=== PATIENT | female | born 1930 | race Caucasian/White ===

== ENCOUNTER 2016-09-05 12:55 | Emergency (ER) | payer OTHER ==
[~2016-09-05] VITALS: Ht 149.9 cm; Wt 51.2 kg
[2016-09-05 12:58] VITALS: TEMP 37.2; Ht 149.9 cm; Wt 51.2 kg
[2016-09-05] MEDS ORDERED: ACETAMINOPHEN 500 MG TAB PO STA (13:13)
[2016-09-05] MEDS ORDERED: SODIUM CHLORIDE 0.9% 1000ML 1,000 ML IV STA (13:13)
[2016-09-05] MEDS ORDERED: TRAMADOL HCL 50 MG TAB PO STA (13:13)
--- NOTE | 2016-09-05 13:16 | EMERGENCY ROOM VISIT NOTE ---
History Report prepared by Vasquez: Gopi Ulloa Under the Supervision of: Dr. Gianluca Turner M.D. First contact with patient: 13:06 Chief Complaint: URINARY SYMPTOMS Stated Complaint: TROUBLE GOING TO THE BATHROOM-URINE Nursing Triage Summary: pt to the ED with c/o "couldn't make my urine " and dark stuff in her underwear c/o dysuria and lower back pain and states she did take her back pain pills History of Present Illness The patient is an 85 year old female who presents to the Emergency Room with complaints of persistent urinary symptoms that started a couple days ago. She says that she has had urinary burning and difficulty urinating. The patient's family notes that the patient has also had brown vaginal discharge. The patient says that she has been having back pain, and has been taking Tramadol with minimal relief. She currently has the pain. The patient states that her abdomen hurts when it is touched. She denies any fevers, vomiting, rashes, or eating problems. The patient is noted to have a history of kidney problems. Source of History: patient, family Onset: A couple days ago Position: other (global - urinary symptoms) Quality: other (difficulty urinating, dysuria) Timing: other (persistent) Associated Symptoms: + back pain, No fevers, No rash, No vomiting Note: Associated symptoms: Abdominal pain when touched. Brown vaginal discharge. Denies eating problems. Review of Systems See HPI for pertinent positives & negatives. A total of 10 systems reviewed and were otherwise negative. Past Medical & Surgical Medical Problems: (1) Diabetes (2) Hip fracture (3) HTN (hypertension) (4) Neck fracture Surgical Problems: (1) History of hysterectomy Family History Diabetes mellitus FHx: cancer Hypertension Social History Smoking Status: Never Smoker Marital Status: Housing Status: lives with family Occupation Status: retired Current/Historical Medications Scheduled Atorvastatin (Lipitor), 20 MG PO DAILY Calcium Carbonate (Caltrate 600), 600 MG PO DAILY Cephalexin Monohydrate (Keflex), 500 MG PO TID Cyanocobalamin (Vitamin B-12), 100 MCG PO DAILY Glimepiride (Glimepiride), 2 MG PO QAM Levothyroxine Sodium (Levothyroxine Sodium), 75 MCG PO QAM Metoprolol Tartrate (Lopressor) (Lopressor), 12.5 MG PO BID Ocuvite Preservision (Ocuvite Preservision), 1 TAB PO DAILY Scheduled PRN Acetaminophen (Tylenol), 500 MG PO Q6H PRN for Pain Meclizine HCl (Meclizine 25), 25 MG PO TID PRN for Dizziness or Vertigo Tramadol (Ultram), 50 MG PO Q6H PRN for Pain Allergies Coded Allergies: Penicillins (Verified Allergy, Severe, 09/05/16) ALLERGY IS ANAPHYLAXIS Hydrocodone (Verified Allergy, Unknown, 09/05/16) Propoxyphene (Verified Allergy, Unknown, 09/05/16) Sulfa Drugs (Verified Allergy, Unknown, 09/05/16) Uncoded Allergies: ASPIRIN (Generic Allergy) (Allergy, Mild, Y, 07/03/02) NAUSEA EGGS (Allergy, Unknown, 07/03/02) N (Allergy, Unknown, 07/03/02) NO (Allergy, Unknown, 07/03/02) NONSTEROIDAL (Allergy, Unknown, 09/05/16) PNC,SULFA,DARVOCET,ASA,HICODENE (Allergy, Unknown, 07/03/02) Physical Exam Vital Signs Date Time Temp Pulse Resp B/P Pulse Ox O2 Delivery O2 Flow Rate FiO2 09/05/16 14:20 70 16 116/57 96 Room Air 09/05/16 12:58 37.2 76 18 137/76 97 Physical Exam GENERAL: Patient is elderly appearing, hard of hearing, in minimal distress. HEENT: No acute trauma, normocephalic atraumatic, mucous membranes moist, no nasal congestion, no scleral icterus. NECK: No stridor, no adenopathy, no meningismus, trachea is midline. LUNGS: No dyspnea. Clear to auscultation and equal bilaterally. No wheeze, no rhonchi. HEART: Regular rate and rhythm. No murmurs, rubs, gallops appreciated. ABDOMEN: Fullness of lower abdomen, mild tenderness over suprapubic area. BACK: No midline tenderness, no CVA tenderness EXTREMITIES: Normal motion all extremities, no cyanosis, no edema. NEUROLOGIC: Alert and oriented, no acute motor or sensory deficits, no focal weakness, cranial nerves grossly intact. SKIN: No rash, no jaundice, no diaphoresis. Medical Decision & Procedures ER Provider Diagnostic Interpretation: CT results are stated below per my interpretation and the radiologist's interpretation. ABDOMEN AND PELVIS CT WITH IV CONTRAST CT DOSE: 358.31 mGycm HISTORY: Pain. Mass. UTI, bilateral flank pain, pubic discomfort, ? Pelvic mass? TECHNIQUE: Multiaxial CT images of the abdomen and pelvis were performed following the use of intravenous contrast. COMPARISON STUDY: None. FINDINGS: Nonspecific interstitial prominence both lung bases. Liver demonstrates several small cortical cysts. Possible early cirrhotic changes considered. Gallbladder is contracted. Right kidney is negative for hydronephrosis. There is a small millimeter calculus within the right renal pelvis. It appears to be nonobstructing. There is a 5.6 x 3.3 cm upper pole right renal cyst. Left kidney enhances appropriately. There is atherosclerotic change and ectasia abdominal aorta. No well-defined aneurysm is appreciated. Bowel pattern overall is nonobstructive. There are findings of chronic sigmoid diverticulosis. Bladder is midline. Patient is status post right hip pinning with metallic artifact obstructing detail of the low pelvis. There is mild increase in fecal load throughout the colon. There are considerable degenerative changes of the thoracolumbar spine. There appears to be fusion of the T12-L1 and L2 vertebral body levels. There is no acute compression deformity. No acute abnormality of the bony pelvis is present. IMPRESSION: 1. General increase in fecal load throughout the colon consistent with a component of fecal stasis. 2. Chronic sigmoid diverticulosis 3. No evidence for pelvic mass or obstructive bowel characteristics. 4. Upper pole right renal cyst with a 6 mm nonobstructing right renal pelvic calcification. 5. Contracted gallbladder. 6. Prominent basilar parenchymal markings Electronically signed by: Alok Marin M.D. 09/05/2016 2:11 PM Dictated Date/Time: 09/05/2016 2:05 PM Laboratory Results 09/05/16 13:25 Red Blood Count 4.00, Mean Corpuscular Volume 91.0, Mean Corpuscular Hemoglobin 29.8, Mean Corpuscular Hemoglobin Concent 32.7, Mean Platelet Volume 9.8, Neutrophils (%) (Auto) 73.8, Lymphocytes (%) (Auto) 15.5, Monocytes (%) (Auto) 9.5, Eosinophils (%) (Auto) 0.8, Basophils (%) (Auto) 0.2, Neutrophils # (Auto) 7.29, Lymphocytes # (Auto) 1.53, Monocytes # (Auto) 0.94, Eosinophils # (Auto) 0.08, Basophils # (Auto) 0.02 09/05/16 13:25 Test 09/05/16 13:05 09/05/16 13:25 09/05/16 13:27 Urine Color YELLOW Urine Appearance TURBID (CLEAR) Urine pH 5.5 (4.5-7.5) Urine Specific [place] 1.010 (1.000-1.030) Urine Protein 1+ (NEG) Urine Glucose (UA) NEG (NEG) Urine Ketones NEG (NEG) Urine Occult Blood 3+ (NEG) Urine Nitrite NEG (NEG) Urine Bilirubin NEG (NEG) Urine Urobilinogen NEG (NEG) Urine Leukocyte Esterase LARGE (NEG) Urine RBC 10-30 /hpf (0-4) Urine WBC >30 /hpf (0-5) Urine Epithelial Cells 0-5 /lpf (0-5) Urine Bacteria 4+ (NEG) White Blood Count 9.88 K/uL (4.8-10.8) Red Blood Count 4.00 M/uL (4.2-5.4) Hemoglobin 11.9 g/dL (12.0-16.0) Hematocrit 36.4 % (37-47) Mean Corpuscular Volume 91.0 fL (80-100) Mean Corpuscular Hemoglobin 29.8 pg (25-34) Mean Corpuscular Hemoglobin Concent 32.7 g/dl (32-36) Platelet Count 195 K/uL (130-400) Mean Platelet Volume 9.8 fL (7.4-10.4) Neutrophils (%) (Auto) 73.8 % Lymphocytes (%) (Auto) 15.5 % Monocytes (%) (Auto) 9.5 % Eosinophils (%) (Auto) 0.8 % Basophils (%) (Auto) 0.2 % Neutrophils # (Auto) 7.29 K/uL (1.4-6.5) Lymphocytes # (Auto) 1.53 K/uL (1.2-3.4) Monocytes # (Auto) 0.94 K/uL (0.11-0.59) Eosinophils # (Auto) 0.08 K/uL (0-0.5) Basophils # (Auto) 0.02 K/uL (0-0.2) RDW Standard Deviation 51.8 fL (36.4-46.3) RDW Coefficient of Variation 15.3 % (11.5-14.5) Immature Granulocyte % (Auto) 0.2 % Immature Granulocyte # (Auto) 0.02 K/uL (0.00-0.02) Est Creatinine Clear Calc Drug Dose 38.1 ml/min Estimated GFR () 88.8 Estimated GFR (Non- 76.6 BUN/Creatinine Ratio 19.4 (10-20) Calcium Level 8.4 mg/dl (8.5-10.1) Bedside Hemoglobin 12.6 g/dl (12.0-16.0) Bedside Hematocrit 37 % (37-47) Bedside Sodium 132 mEq/L (135-144) Bedside Potassium 3.9 mEq/L (3.3-5.0) Bedside Chloride 93 mEq/L (101-112) Bedside Total CO2 26 mEq/l (24-31) Anion Gap 18.0 mmol/L (16-25) Bedside Blood Urea Nitrogen 14 mg/dl (7-18) Bedside Creatinine 0.7 mg/dl (0.6-1.3) Bedside Glucose (other) 136 mg/dl (70-99) Bedside Ionized Calcium ([place]) 1.13 mmol/l (1.12-1.32) Laboratory results as reviewed by me. Medications Administered Medications (Trade) Dose Ordered Sig/Aileen Route Start Time Stop Time Status Last Admin Dose Admin Sodium Chloride (Nss 1000ml) 1,000 ml @ 75 mls/hr [id number] STAT IV 09/05/16 13:13 09/05/16 15:01 DC 09/05/16 14:16 75 MLS/HR Acetaminophen (Tylenol Tab) 1,000 mg NOW STAT PO 09/05/16 13:13 09/05/16 13:15 DC 09/05/16 13:33 1,000 MG Tramadol HCl (Ultram Tab) 50 mg NOW STAT PO 09/05/16 13:13 09/05/16 13:15 DC 09/05/16 13:34 50 MG Cephalexin Monohydrate (Keflex Cap) 500 mg NOW ONCE PO 09/05/16 14:30 09/05/16 14:31 DC 09/05/16 14:40 500 MG ED Course 1308: The patient was evaluated in room B12B. A complete history and physical exam was performed. 1313: Ordered Ultram Tab 50 mg PO, Tylenol Tab 1000 mg PO, NSS 1000 ml @ 75 mls/ hr IV. 1428: Reevaluated the patient and she is feeling much better and would like to go home. She will use an enema at home. Discussed results and discharge instructions: She verbalized understanding and agreement. The patient is ready for discharge. 1430: Ordered Keflex Cap 500 mg PO. Medical Decision Differential: UTI, Urethritis, Pyelonephritis, STI, Herpetic, Vaginitis, Hyperglycemia, Yeast, PID, Cystitis, Hemorrhagic Cystitis, amongst other pathologies entertained. 85 yr old female arrives for evaluation of UTI symptoms. With questionable mass , ua findings felt imaging reasonable which revealed constipation findings which may explain fullness lower abdomen. Everything looking well and patient wanting to go home. Keflex while awaiting culture. Stable and happy when discharged. She plans on going home and using enema which is regular for her. Impression Primary Impression: Urinary tract infection Additional Impression: Constipation Scribe Attestation The scribe's documentation has been prepared under my direction and personally reviewed by me in its entirety. I confirm that the note above accurately reflects all work, treatment, procedures, and medical decision making performed by me. Departure Information Dispostion Home / Self-Care Prescriptions Cephalexin Monohydrate (KEFLEX) 500 Mg Cap 500 MG PO TID, #15 CAP Prov: Gianluca Turner M.D. 09/05/16 Referrals Primary Provider Patient Instructions My [facility], Urinary Tract Infection - [facility] Additional Instructions It is important to follow up with your primary provider in 1 week to make sure urine infection has cleared. Problem Qualifiers Primary Impression: Urinary tract infection Urinary tract infection type: acute cystitis Hematuria presence: without hematuria Qualified Codes: N30.00 - Acute cystitis without hematuria Additional Impression: Constipation Constipation type: slow transit constipation Qualified Codes: K59.01 - Slow transit constipation
[2016-09-05] MEDS ORDERED: MULT-190 PO (13:28)
[2016-09-05] MEDS ORDERED: CALCTAB5 PO (13:28)
[2016-09-05] MEDS ORDERED: MECL-91 PO (13:28)
[2016-09-05] MEDS ORDERED: CYAN100T PO (13:28)
[2016-09-05] MEDS ORDERED: OPTIRAY 320 IV PRN (13:30)
[2016-09-05 13:40] LABS: ISTAT CREATININE 0.7 mg/dl (0.6-1.3); ISTAT HEMOGLOBIN 12.6 g/dl (12.0-16.0); ISTAT IONIZED CALCIUM 1.13 mmol/l (1.12-1.32)
[2016-09-05 13:43] LABS: BASO % 0.2 %; BASO ABS # 0.02 K/uL (0-0.2); COMPLETE YES; EOS % 0.8 %; HEMATOCRIT 36.4 % (37-47); IG% 0.2 %; LYMPH % 15.5 %; LYMPH ABS # 1.53 K/uL (1.2-3.4); MEAN CORPUSCULAR HEMOGLOBIN 29.8 pg (25-34); MEAN CORPUSCULAR HGB CONC 32.7 g/dl (32-36); MEAN PLATELET VOLUME 9.8 fL (7.4-10.4); MONO % 9.5 %; NEUT % 73.8 %; PLATELET COUNT 195 K/uL (130-400); WHITE BLOOD COUNT 9.88 K/uL (4.8-10.8)
[2016-09-05 14:00] LABS: URINE APPEARANCE TURBID (CLEAR); URINE BILIRUBIN NEG (NEG); URINE COLOR YELLOW; URINE NITRITE NEG (NEG); URINE PH 5.5 (4.5-7.5); UROBILINOGEN NEG (NEG); ZZUR CULT IF INDIC CLEAN CATCH YES
[2016-09-05 14:02] LABS: BUN/CREATININE RATIO 19.4 (10-20); CALCIUM 8.4 mg/dl (8.5-10.1); CREATININE 0.71 mg/dl (0.60-1.20); POTASSIUM 3.8 mmol/L (3.5-5.1)
[2016-09-05 14:02] LABS: MANUAL MICROSCOPIC REQUIRED? YES; REVIEW REQ? NO
[2016-09-05 14:08] LABS: URINE BACTERIA 4+ (NEG); URINE WBC >30 /hpf (0-5)
--- NOTE | 2016-09-05 14:13 | DIAGNOSTIC IMAGING REPORT ---
ABDOMEN AND PELVIS CT WITH IV CONTRAST CT DOSE: 358.31 mGycm HISTORY: Pain. Mass. UTI, bilateral flank pain, pubic discomfort, ? Pelvic mass? TECHNIQUE: Multiaxial CT images of the abdomen and pelvis were performed following the use of intravenous contrast. COMPARISON STUDY: None. FINDINGS: Nonspecific interstitial prominence both lung bases. Liver demonstrates several small cortical cysts. Possible early cirrhotic changes considered. Gallbladder is contracted. Right kidney is negative for hydronephrosis. There is a small millimeter calculus within the right renal pelvis. It appears to be nonobstructing. There is a 5.6 x 3.3 cm upper pole right renal cyst. Left kidney enhances appropriately. There is atherosclerotic change and ectasia abdominal aorta. No well-defined aneurysm is appreciated. Bowel pattern overall is nonobstructive. There are findings of chronic sigmoid diverticulosis. Bladder is midline. Patient is status post right hip pinning with metallic artifact obstructing detail of the low pelvis. There is mild increase in fecal load throughout the colon. There are considerable degenerative changes of the thoracolumbar spine. There appears to be fusion of the T12-L1 and L2 vertebral body levels. There is no acute compression deformity. No acute abnormality of the bony pelvis is present. IMPRESSION: 1. General increase in fecal load throughout the colon consistent with a component of fecal stasis. 2. Chronic sigmoid diverticulosis 3. No evidence for pelvic mass or obstructive bowel characteristics. 4. Upper pole right renal cyst with a 6 mm nonobstructing right renal pelvic calcification. 5. Contracted gallbladder. 6. Prominent basilar parenchymal markings Electronically signed by: Alok Marin M.D. 09/05/2016 2:11 PM Dictated Date/Time: 09/05/2016 2:05 PM
[2016-09-05 14:20] VITALS: BP 116/57; PULSE 70; O2SAT 96
[2016-09-05] MEDS ORDERED: TRAM-10 PO (14:29)
[2016-09-05] MEDS ORDERED: ATOR-22 PO (14:29)
[2016-09-05] MEDS ORDERED: GLIM1TAB2 PO (14:29)
[2016-09-05] MEDS ORDERED: LEVO75TA5 PO (14:29)
[2016-09-05] MEDS ORDERED: METO25TA56 PO (14:29)
[2016-09-05] MEDS ORDERED: TYLOTC500 PO (14:29)
[2016-09-05] MEDS ORDERED: CEPHALEXIN MONOHYDRATE 250 MG CAP PO ONE (14:30)
[2016-09-05] MEDS ORDERED: CEPH500C2 PO (14:32)
--- NOTE | 2016-09-07 12:18 | Pharmacy Progress Note ---
ED Pharmacist Culture FollowUp Date of Service: Sep 07, 2016. Patient was sent home with a prescription for Keflex 500mg PO TID x 5 days, which should cover the e coli growing from the patient's URINE culture.
== END 2016-09-05 14:39 | disposition home or self-care (01) ==
LOC: C.EDB 12:56
DX: N30.00 Acute cystitis without hematuria (principal); K59.01 Slow transit constipation; E11.9 Type 2 diabetes mellitus without complications; I10 Essential (primary) hypertension; Z79.899 Other long term (current) drug therapy; Z87.828 Personal history of other (healed) physical injury and trauma; Z82.49 Family history of ischemic heart disease and other diseases of the circulatory system; Z83.3 Family history of diabetes mellitus